=== PATIENT | male | born 1975 | race African-American/Black ===

== ENCOUNTER 2017-10-01 12:09 | Emergency (ER) | payer BC ==
[~2017-10-01] VITALS: Ht 182.9 cm; Wt 84.7 kg
[~2017-10-01 12:09] MED LIST: NOHOMEMEDS; PERCOCET 5/31 TABLET PO
[2017-10-01] MEDS ORDERED: ULTRAM50 MG PO (14:06)
[2017-10-01 14:16] VITALS: BP 114/67
== END 2017-10-01 14:17 | disposition home or self-care (01) ==
LOC: EME 12:09
DX: S40.011A Contusion of right shoulder, initial encounter (principal); W10.9XXA Fall (on) (from) unspecified stairs and steps, initial encounter; F17.200 Nicotine dependence, unspecified, uncomplicated; Z88.5 Allergy status to narcotic agent; Z88.0 Allergy status to penicillin; Z91.041 Radiographic dye allergy status; Z91.011 Allergy to milk products
CPT/HCPCS: 73030; 99281; 99283

== ENCOUNTER 2018-03-01 03:30 | Emergency (ER) | payer BC ==
[~2018-03-01] VITALS: Ht 182.9 cm; Wt 84.4 kg
[~2018-03-01 03:30] MED LIST changes: +ULTRAM50 MG PO
[2018-03-01] MEDS ORDERED: BACTRIM,SEPT1 TABLET PO (05:00)
[2018-03-01 05:16] VITALS: BP 124/82
== END 2018-03-01 05:17 | disposition home or self-care (01) ==
LOC: EME 03:30
PROC: 3E0234Z Introduction of Serum, Toxoid and Vaccine into Muscle, Percutaneous Approach (ICD-10-PCS; principal; 2018-03-01)
DX: S91.311A Laceration without foreign body, right foot, initial encounter (principal); W25.XXXA Contact with sharp glass, initial encounter; Y93.89 Activity, other specified; Z23 Encounter for immunization; Z88.5 Allergy status to narcotic agent; Z88.0 Allergy status to penicillin; Z91.041 Radiographic dye allergy status
CPT/HCPCS: 99281; 99284